=== PATIENT | male | born 1945 | race Caucasian/White ===

== ENCOUNTER 2016-05-21 07:12 | Day surgery (SDC) | payer OTHER ==
[2016-05-16 13:09] VITALS: BMI 18.7
[2016-05-21] MEDS ORDERED: ROCURONIUM BROMIDE 50 MG/5 ML VIAL ONE ×2 (08:22→10:15)
[2016-05-21] MEDS ORDERED: PROPOFOL 20 ML ONE ×3 (08:22→10:15)
[2016-05-21] MEDS ORDERED: MIDAZOLAM HCL 2 MG/2 ML SINGLE DOSE VIAL ONE ×2 (08:22→10:15)
[2016-05-21] MEDS ORDERED: BUPIVACAINE HCL/PF 0.5% (5MG/ML) 10 ML VIAL ONE (08:43)
[2016-05-21] MEDS ORDERED: ceFAZolin SODIUM 1 GM VIAL ONE ×2 (09:15→20:22)
[2016-05-21] MEDS ORDERED: ONDANSETRON 4 MG/2 ML VIAL ONE (09:19)
[2016-05-21] MEDS ORDERED: DEXAMETHASONE SOD PHOSPHATE 4 MG/1 ML VIAL ONE ×3 (09:19→11:27)
[2016-05-21] MEDS ORDERED: SUCCINYLCHOLINE CHLORIDE 200 MG/10 ML VIAL ONE (09:31)
[2016-05-21] MEDS ORDERED: ePHEDrine SULFATE 50 MG/1 ML AMPULE ONE ×2 (09:31→11:34)
[2016-05-21] MEDS ORDERED: GLYCOPYRROLATE 0.2 MG/1 ML VIAL ONE ×3 (10:01→12:26)
[2016-05-21] MEDS ORDERED: NEOSTIGMINE METHYLSULFATE 0.5 MG/ML - 10 ML MDV ONE ×3 (10:01→12:26)
[2016-05-21] MEDS ORDERED: BUPIVACAINE HCL/PF 0.5% (5MG/ML) 10 ML VIAL IJ ONE (10:07)
[2016-05-21] MEDS ORDERED: oxyCODONE HCL 5 MG TABLET PO PRN (10:24)
[2016-05-21] MEDS ORDERED: LACTATED RINGERS SOLUTION 1,000 ML IV SCH (10:30)
[2016-05-21] MEDS ORDERED: TAMSULOSIN HCL 0.4 MG CAP.ER.24H (FP) PO ONE ×2 (10:40→11:00)
[2016-05-21] MEDS ORDERED: CLINDAMYCIN PHOSPHATE 600 MG/4 ML VIAL ONE (11:28)
--- NOTE | 2016-05-21 11:32 | OP ---
DATE OF OPERATION: 05/21/2016 PREOPERATIVE DIAGNOSIS: Incarcerated right inguinal hernia. POSTOPERATIVE DIAGNOSIS: Incarcerated indirect right inguinal hernia. PROCEDURE: Open reduction repair of incarcerated right inguinal hernia with mesh/intermediate wound closure (8 cm). SURGEON: Anthony Byrne M.D. MEDICAL BILLING SUPERVISOR: Kendell Higuera M.D. ANESTHESIA: General ANESTHESIOLOGIST: Lacey Rosen M.D. HISTORY: A 71-year-old man who presents with a mass of the right groin, which based on CT, was felt to likely represent incarcerated fluid within an incarcerated hernia. He presents for definitive management. Indications, alternatives, possible complications reviewed. Consent obtained. PROCEDURE: With the patient in the supine position, after general anesthesia, the right groin was prepped and draped in the usual sterile fashion using chlorhexidine. An 8 cm right groin incision was made between the right pubic tubercle and the anterior iliac spine. The incision was deepened through the skin into the subcutaneous space. The subcutaneous tissues were and divided to the level of the external oblique aponeurosis. All identified vessels in the subcutaneous space were clamped, divided and ligated. The external oblique aponeurosis was then opened in the direction of its fibers through the external ring. The ilioinguinal nerve was identified and spared. The undersurface was split. External oblique aponeurosis swept clean to the level of the pubic tubercle. At the pubic tubercle, a Tatum drain was placed around the cord structures. The cystic mass represented loculated fluid in a distal indirect hernia sac. The sac was freed from its attachments to the remaining cord structures with care not to injure the vas or its vascular component. The sac was mobilized to the level of the preperitoneal fat and the inferior epigastric vessels. It contained no structures. It was transfixed at its base with 2-0 silk material x2. The sac was amputated and sent as specimen. Now directing our attention to the inguinal floor, there was attenuation of the transversalis fascia superiorly. The entire transversalis fascia was split throughout its entire length. The preperitoneal tissues were further reduced and they were placed in the preperitoneal space. It was anchored circumferentially with 2-0 Prolene sutures. The transversalis fascia they were plugged, using a continuous 2-0 Prolene suture, beginning at the pubic tubercle, approaching and reconstructing the internal ring, and returning to the pubic tubercle. Ultimately, an overlay patch was fashioned about the entire inguinal floor and tacked in place circumferentially. The superior portion of the mesh was keyholed and wrapped around the cord buttressing the internal ring. The cord and nerve were returned to their anatomic positions. The overlying external oblique aponeurosis was closed using a 3-0 Vicryl suture. The wound was closed in layers. Apurva fascia was approximated with 3-0 chromic sutures. The subcuticular was approximated with interrupted 4-0 Biosyn sutures. The skin was closed using 4-0 Biosyn interrupted in the subcuticular space in continuous fashion. Ten mL of 0.5% Marcaine was freely instilled in the wound prior to closure. Dermabond applied, procedure terminated. COUNT: Needle and instrument count correct. ESTIMATED BLOOD LOSS: Minimal. SPECIMEN: Hernia sac. DRAINS: None. IMPLANT: Mesh plug. Patient tolerated the procedure. The procedure was terminated. Kaela [id number] cc: Alejandro Rodríguez M.D. MTDMaribel
[2016-05-21] MEDS ORDERED: ONDANSETRON 4 MG/2 ML VIAL IVPUSH PRN (11:33)
[2016-05-21] MEDS ORDERED: PROMETHAZINE HCL 25 MG/1 ML VIAL IVPUSH PRN (11:35)
[2016-05-21] MEDS ORDERED: oxyCODONE HCL 5 MG TABLET ONE (12:08)
[2016-05-21] MEDS ORDERED: LABETALOL HCL 5 MG/1 ML (100MG/20 ML VIAL) ONE (12:21)
[2016-05-21] MEDS ORDERED: TAMSULOSIN HCL 0.4 MG CAP.ER.24H (FP) ONE (16:06)
--- NOTE | 2016-05-21 18:11 | CON.GU ---
Consult Consult Specialty:: Urology Referred by:: Caty Reason for Consultation:: urinary retention - History of Present Illness Chief Complaint: unable to urinate History of Present Illness: 71 yo m w hx BPH on avodart and flomax .8 QD who developed acute urinary retention after open RIH repair today. RN and ER MD were unable to insert chavis and cons requested. - History Source History Provided By: Patient Limitations to Obtaining History: No Limitations - Past Medical History Renal/: Yes: BPH - Past Surgical History Past Surgical History: Yes: Hernia Repair - Alcohol/Substance Use Hx Alcohol Use: Yes (WINE WITH DINNER) - Smoking History Smoking history: Never smoked Have you smoked in the past 12 months: No Aproximately how many cigarettes per day: 0 Home Medications - Allergies Allergies/Adverse Reactions: Allergies Allergy/AdvReac Type Severity Reaction Status Date / Time No Known Drug Allergies Allergy Verified 05/16/16 13:00 - Home Medications Home Medications: Ambulatory Orders Dutasteride [Avodart] 0.5 mg PO HS 10/29/13 Tamsulosin HCl [Flomax] 0.8 mg PO HS 10/29/13 Bupropion HCl [Wellbutrin -] 100 mg PO HS 05/16/16 Bupropion HCl [Wellbutrin -] 200 mg PO DAILY 05/16/16 Cholecalciferol (Vitamin D3) [Vitamin D3] 2,000 unit PO DAILY 05/16/16 Cyanocobalamin [Vitamin B12 -] 1,000 mcg PO DAILY 05/16/16 Escitalopram Oxalate [Lexapro -] 10 mg PO HS 05/16/16 Oxycodone HCl/Acetaminophen [Percocet 5-325 mg Tablet] 1 tab PO Q4H PRN #42 tablet MDD 6 05/21/16 Physical Exam- Vital Signs: Vital Signs Temperature 98.6 F 05/21/16 13:40 Pulse Rate 62 05/21/16 13:40 Respiratory Rate 18 05/21/16 13:40 Blood Pressure 112/59 05/21/16 13:40 O2 Sat by Pulse Oximetry (%) 99 05/21/16 13:40 Constitutional: Yes: Well Nourished, No Distress, Calm Renal/: Yes: Bladder Distention, Urethral Discharge (bloody). No: Hematuria Prostate Exam: Yes: Swollen (4+) Labs: CBC, BMP 05/21/16 07:40 Assessment/Plan Imp: BPH, urinary retention, ? urethral false passage, s/p RIH repair Rec: I was unable to insert, 14, 16, 18, or 20 fr coude catheter due to resistance at Bladder neck/prostatic urethra. He needs cystoscopy and chavis cath insertion over a wire.
[2016-05-21] MEDS ORDERED: morphine CARPU-JECT 2 MG/1 ML DISP.SYRIN IVPB ONE (19:07)
[2016-05-21] MEDS ORDERED: morphine CARPU-JECT 2 MG/1 ML DISP.SYRIN ONE (19:33)
[2016-05-21] MEDS ORDERED: LIDOCAINE 1%/EPI 1:100000 (50 ML MULTI DOSE VIAL) INF ONE (19:45)
[2016-05-21] MEDS ORDERED: LIDOCAINE HCL 2% JELLY 10 ML CARTRIDGE ONE (19:49)
[2016-05-21] MEDS ORDERED: LIDOCAINE 1%-EPI 1:100,000 30 ML MDV IJ ONE (19:53)
[2016-05-21] MEDS ORDERED: morphine CARPU-JECT 2 MG/1 ML DISP.SYRIN IVPUSH STA (20:03)
--- NOTE | 2016-05-21 20:32 | OP ---
Operative Note - Note: Operative Date: 05/21/16 Pre-Operative Diagnosis: acute urinary retention, BPH Operation: percutaneous suprapubic cystostomy Findings: > 1 liter clear yellow urine drained Post-Operative Diagnosis: Same as Pre-op Surgeon: Brian Buchanan Anesthesia: Local Estimated Blood Loss (mls): 0 Drains & Tubes with Location: 12 fr 10 ml balloon SP tube Operative Report Dictated: Yes
[2016-05-21] MEDS ORDERED: DEXTROSE 5%-0.45% SALINE 1,000 ML IV SCH ×2 (20:45)
[2016-05-22] MEDS: CEFAZOLIN (PRE-DOCKED) 50 ML IVPB SCH ×2 (01:15→09:10)
[2016-05-22] MEDS: OXYCODONE/APAP 5/325MG COMBO TABLET PO PRN ×2 (01:15→09:13)
[2016-05-22 05:28] VITALS: BP 93/39; PULSE 58; TEMP 97.8
[2016-05-22] MEDS ORDERED: AMOX TR/POT CLAV 875MG/125MG TABLETS (FP) PO SCH (08:00)
--- NOTE | 2016-05-22 16:36 | OP ---
OPERATIVE REPORT DATE OF OPERATION: 05/21/2016 PROCEDURE: Percutaneous trocar suprapubic cystotomy. PREOPERATIVE DIAGNOSIS: Acute urinary retention and BPH. POSTOPERATIVE DIAGNOSIS: Acute urinary retention and BPH. SURGEON: Brian Matthews MD TITLE ASSISTANT: None. ANESTHESIA: Local. SPECIMENS: None. CULTURES: None. DRAINS: A 12-Sinhala, 10-mL balloon; suprapubic tube. ESTIMATED BLOOD LOSS: None. COMPLICATION: None. PROCEDURE WENT FOLLOWS: Patient brought into the recovery room and left on a stretcher in the supine position. After administration of some intravenous analgesia, the lower abdomen was prepped and draped in the usual sterile manner. Then, 10 mL of 1% lidocaine with epinephrine were injected into the anterior abdominal wall 2 fingerbreadths cephalad to the symphysis pubis in the midline. Local anesthesia was then infiltrated in a deeper manner and using a 22-gauge needle, the bladder was entered and urine was aspirated. Then, an 11-blade was used to make a small stab wound in the skin at this level. The 22-gauge needle was removed and the trocar 12-Sinhala suprapubic cystotomy was inserted. Trocar was removed. Urine was evacuated and 10 mL were placed in the balloon, placed on gravity drainage and returned greater than 1 liter of clear yellow urine. Tolerated the procedure well. Sterile compressive dressing was applied. He will be discharged home on antibiotics with followup in the office in the morning for cystoscopy. He will most likely need a prostatectomy. BRIAN MATTHEWS M.D. [id number]
--- NOTE | 2016-05-23 11:34 | PATH ---
Surgical Pathology Report Patient Name: YOANDY INIGUEZ Med. Rec. #: [id number] /Age/Gender: 1945 (Age: 71) / M Account: [id number] Location: [facility] Taken: 05/21/2016 Received: 05/21/2016 Reported: 05/23/2016 Physicians: Anthony Byrne M.D. Specimen(s) Received HERNIA SAC Clinical History Incarcerated right inguinal hernia Final Diagnosis SOFT TISSUE, RIGHT INGUINAL, EXCISION: HERNIA SAC WITH ASSOCIATED CHRONIC INFLAMMATION. Electronically Signed Douglas Ramirez M.D. Gross Description Received in formalin, labeled "hernia sac," is a 7.5 x 1.3 x 0.3 cm waters-brown, irregular portion of soft tissue, consistent with a hernia sac. Farm Operations Manager sections are submitted in one cassette. 05/22/201605/22/2016
== END 2016-05-22 11:05 | disposition home or self-care (01) ==
LOC: FASU 07:12 → FM/S 21:00 → FASU 05-22 11:05
PROVIDERS: ATTEND Surgery
PROC: 0T9B30Z Drainage of Bladder with Drainage Device, Percutaneous Approach (ICD-10-PCS; 2016-05-21)
PROC: 0YU50JZ Supplement Right Inguinal Region with Synthetic Substitute, Open Approach (ICD-10-PCS; principal; 2016-05-21 09:20)
DX: K40.30 Unilateral inguinal hernia, with obstruction, without gangrene, not specified as recurrent (principal); N40.1 Benign prostatic hyperplasia with lower urinary tract symptoms; R33.9 Retention of urine, unspecified
CPT/HCPCS: 36415; 84132; 87086; 87186; 88302-TC; 94760

== ENCOUNTER 2017-05-31 10:13 | Emergency (ER) | payer OTHER ==
--- NOTE | 2017-05-31 10:23 | PDOC ---
History of Present Illness - General Chief Complaint: Abscess Boil Stated Complaint: blister to right great toe Time Seen by Provider: 05/31/17 10:16 - History of Present Illness Initial Comments: 05/31/17 10:25 72-year-old male with a history of BPH, depression presents to the emergency department with a blood blister on his right great toe. Patient reports 2 days ago a approximately 100 pound metal crate slipped onto his right toe. He had shoes on at the time. He denies any pain but notes that since the injury he developed a blood blister over the right great toe. Denies any other injuries. States he do not mind search on how to resolve the blister and came to the emergency department so that we could unroof it. Denies any fevers, chills, chest pain, shortness of breath, abdominal pain, weakness/numbness. Past History - Past Medical History Allergies/Adverse Reactions: Allergies Allergy/AdvReac Type Severity Reaction Status Date / Time No Known Drug Allergies Allergy Verified 05/31/17 10:24 Home Medications: Ambulatory Orders Dutasteride [Avodart] 0.5 mg PO HS 10/29/13 Tamsulosin HCl [Flomax] 0.8 mg PO HS 10/29/13 Bupropion HCl [Wellbutrin -] 200 mg PO BID 05/16/16 Cholecalciferol (Vitamin D3) [Vitamin D3] 2,000 unit PO DAILY 05/16/16 Cyanocobalamin [Vitamin B12 -] 1,000 mcg PO DAILY 05/16/16 Escitalopram Oxalate [Lexapro -] 10 mg PO HS 05/16/16 Anemia: No Asthma: No Cancer: No Cardiac Disorders: No CVA: No COPD: No CHF: No Dementia: No Diabetes: No GI Disorders: No Disorders: Yes (BPH) HTN: No Hypercholesterolemia: No Liver Disease: No Seizures: No Thyroid Disease: No - Suicide/Smoking/Psychosocial Hx Smoking Status: No Smoking History: Never smoked Have you smoked in the past 12 months: No Number of Cigarettes Smoked Daily: 0 Hx Alcohol Use: Yes (WINE WITH DINNER) Drug/Substance Use Hx: Yes Substance Use Type: Alcohol Hx Substance Use Treatment: No Review of Systems - Review of Systems Comments:: 05/31/17 10:27 GENERAL/CONSTITUTIONAL: No fever or chills. No weakness. HEAD, EYES, EARS, NOSE AND THROAT: No change in vision. No ear pain or discharge. No sore throat. GASTROINTESTINAL: No nausea, vomiting, diarrhea or constipation. GENITOURINARY: No dysuria, frequency, or change in urination. CARDIOVASCULAR: No chest pain or shortness of breath. RESPIRATORY: No cough, wheezing, or hemoptysis. MUSCULOSKELETAL: No joint or muscle swelling or pain. No neck or back pain. SKIN: +blister to R great toe NEUROLOGIC: No headache, vertigo, loss of consciousness, or change in strength/ sensation. ENDOCRINE: No increased thirst. No abnormal weight change. HEMATOLOGIC/LYMPHATIC: No anemia, easy bleeding, or history of blood clots. ALLERGIC/IMMUNOLOGIC: No hives or skin allergy. *Physical Exam - Physical Exam Comments: 05/31/17 10:27 GENERAL: Awake, alert, and fully oriented, in no acute distress HEAD: No signs of trauma EYES: PERRLA, EOMI, sclera anicteric, conjunctiva clear ENT: Auricles normal inspection, hearing grossly normal, nares patent, oropharynx clear without exudates. Moist mucosa NECK: Normal ROM, supple, no lymphadenopathy, JVD, or masses LUNGS: Breath sounds equal, clear to auscultation bilaterally. No wheezes, and no crackles HEART: Regular rate and rhythm, normal S1 and S2, no murmurs, rubs or gallops ABDOMEN: Soft, nontender, normoactive bowel sounds. No guarding, no rebound. No masses EXTREMITIES: Normal range of motion, no edema. No clubbing or cyanosis. No cords, erythema, or tenderness. Dorsal R great toe with 2x1cm blood blister. Plantar surface of toe with ecchymosis. No deformities. 2+ peripheral pulses NEUROLOGICAL: Normal speech, cranial nerves intact, negative pronator drift, 5/ 5 strength in all 4 extremities, normal sensation to light touch in all 4 extremities, normal cerebellar exam, normal gait, normal reflexes and tone SKIN: Warm, Dry, normal turgor, no rashes or lesions noted. Medical Decision Making - Medical Decision Making 05/31/17 10:29 72yo M p/w blood blister after crate fell onto his R great toe. Pt had shoes on , no open injuries. Toe with ecchymosis, thus will obtain XR to r/o bony injury.Pt is NV intact. Discussed with pt that blood blister would likely resolve on it's own and that unroofing it would expose it to infection. Has no pain, declines pain medications. 05/31/17 11:37 R great toe with non displaced fracture. Pt has no pain. Due to blood blister on toe, will be unable to jessica tape the toe. Pt given hard soled shoe and will follow up with ortho. I discussed the physical exam findings, ancillary test results and final diagnoses with the patient. I answered all of the patient's questions. The patient was satisfied with the care received and felt comfortable with the discharge plan and treatment plan. The patient will call their primary care physician within 24 hours to arrange follow-up and will return to the Emergency Department with any new, persistent or worsening symptoms. *DC/Admit/Observation/Transfer Diagnosis at time of Disposition: Fracture, toe - Discharge Dispostion Disposition: HOME Condition at time of disposition: Stable Admit: No - Referrals Referrals: Alfred Sands MD [Staff Physician] - - Patient Instructions Printed Discharge Instructions: DI for Toe Fracture Additional Instructions: Make a follow-up appointment with Dr. Sands (orthopedics) within one week. If you develop pain, you may take Tylenol or Motrin for pain control. Return to the emergency department if you have any new, worsening or concerning symptoms. - Post Discharge Activity - Attestations Physician Attestion: 05/31/17 11:44 I, Dr. Tonie Sebastian MD, attest that this document has been prepared under my direction and personally reviewed by me in its entirety. I further attest, that it accurately reflects all work, treatment, procedures and medical decision -making performed by me.
[2017-05-31 10:31] VITALS: BP 138/79; PULSE 60; TEMP 97.9
== END 2017-05-31 11:52 | disposition home or self-care (01) ==
LOC: FER 10:13
DX: S92.424A Nondisplaced fracture of distal phalanx of right great toe, initial encounter for closed fracture (principal); W20.8XXA Other cause of strike by thrown, projected or falling object, initial encounter; Y93.89 Activity, other specified; Y92.9 Unspecified place or not applicable
CPT/HCPCS: 73660-TC-FY; 99281-25

== ENCOUNTER 2018-09-06 08:06 | Day surgery (SDC) | payer OTHER ==
[2018-09-06 08:36] VITALS: TEMP 98
[2018-09-06] MEDS ORDERED: PROPOFOL 20 ML ONE ×2 (08:46)
[2018-09-06 10:51] VITALS: BP 108/61; PULSE 60
--- NOTE | 2018-09-09 11:20 | PATH ---
Surgical Pathology Report Patient Name: YOANDY INIGUEZ [facility]. Rec. #: [id number] /Age/Gender: 1945 (Age: 73) / M Account: [id number] Location: [facility] Taken: 09/06/2018 Received: 09/06/2018 Reported: 09/09/2018 Physicians: Bonilla Hayward M.D. Specimen(s) Received ILEOCECAL VALVE Clinical History Family history polyps Postoperative diagnosis: Polyp Final Diagnosis ILEOCECAL VALVE, POLYP, BIOPSY: TUBULAR ADENOMA. Electronically Signed Charmaine Berg M.D. Gross Description Received in formalin, labeled " bx polyp ileocecal valve" is a waters, irregular portion of soft tissue measuring 0.2 cm. in greatest dimension. The specimen is submitted in toto in one cassette. MLSZ/09/07/2018 sansadi/09/07/2018
== END 2018-09-06 11:00 | disposition home or self-care (01) ==
LOC: FASU-ENDO 08:06
PROVIDERS: ATTEND Internal Medicine Gastroenterology
PROC: 0DBC8ZX Excision of Ileocecal Valve, Via Natural or Artificial Opening Endoscopic, Diagnostic (ICD-10-PCS; principal; 2018-09-06 09:41)
DX: Z12.11 Encounter for screening for malignant neoplasm of colon (principal); Z83.71 Family history of colonic polyps; D12.0 Benign neoplasm of cecum
CPT/HCPCS: 88305-TC

== ENCOUNTER 2020-01-22 10:20 | Emergency (ER) | payer OTHER ==
--- OUTSIDE RECORDS SUMMARY | 2020-01-22 10:27 | XMS ---
:1945 Author Organization [facility] Support Name Relationship Address Phone CYPRIOT HOUSEWARES Unavailable [address] [place] [address] SHRUTHI INIGUEZ DAUGHTER [address] [phone] [place] [address] GILBERTO INIGUEZ [address] [place] [address] GILBERTO INIGUEZ Spouse [address] [place] [place] [address] Re-disclosure Warning The records that you are about to access may contain information from federally- assisted alcohol or drug abuse programs. If such information is present, then the following federally mandated warning applies: This information has been disclosed to you from records protected by federal confidentiality rules (42 CFR part 2). The federal rules prohibit you from making any further disclosure of this information unless further disclosure is expressly permitted by the written consent of the person to whom it pertains or as otherwise permitted by 42 CFR part 2. A general authorization for the release of medical or other information is NOT sufficient for this purpose. The Federal rules restrict any use of the information to criminally investigate or prosecute any alcohol or drug abuse patient.The records that you are about to access may contain highly sensitive health information, the redisclosure of which is protected by Article 27-F of the [facility] Public Health law. If you continue you may haveaccess to information: Regarding HIV / AIDS; Provided by facilities licensed or operated by the [facility] Office of Mental Health; or Provided by the [facility] Office for People With Developmental Disabilities. If such information is present, then the following [facility] mandated warning applies: This information has been disclosed to you from confidential records which are protected by state law. State law prohibits you from making any further disclosure of this information without the specific written consent of the person to whom it pertains, or as otherwise permitted by law. Any unauthorized further disclosure in violation of state law may result in a fine or halfway sentence or both. A general authorization for the release of medical or other information is NOT sufficient authorization for further disclosure. Encounters Encounter Providers Location Date Indications Data Source(s ) Outpatient 11/04/2019 09:22:00 [facility] ([facility]) Outpatient 11/04/2019 09:22:00 [facility] ([facility]) Insurance Providers Payer name Policy type Policy ID Covered Covered democrat's Policy P [id number] / Coverage democrat ID relationship to Brady Inf ormation type brady AETNA M 18 M RUPINDER MEDICARE [id number] SP [id number] AETNA [id number] SP [id number] MEDICARE
--- NOTE | 2020-01-22 11:00 | TELE ---
HPI Do you have fever,cough or shortness of breath?: No - General Reason For Visit: COVID TESTING History Source: Patient Past History - Medical History Allergies/Adverse Reactions: Allergies Allergy/AdvReac Type Severity Reaction Status Date / Time No Known Drug Allergies Allergy Verified 07/12/19 19:21 Home Medications: Ambulatory Orders Dutasteride [Avodart] 0.5 mg PO HS 10/29/13 Bupropion HCl [Wellbutrin -] 200 mg PO BID 05/16/16 Cholecalciferol (Vitamin D3) [Vitamin D3] 2,000 unit PO HS 05/16/16 Cyanocobalamin [Vitamin B12 -] 1,000 mcg PO HS 05/16/16 Escitalopram Oxalate [Lexapro -] 10 mg PO HS 05/16/16 Anemia: No Asthma: No Cancer: No Cardiac Disorders: No CVA: No COPD: No CHF: No Dementia: No Diabetes: No GI Disorders: No Disorders: Yes (BPH) HTN: No Hypercholesterolemia: No Liver Disease: No Psychiatric Problems: Yes Seizures: No Thyroid Disease: No - Surgical History Abdominal Surgery: Yes (hernia repair in 2017) Appendectomy: No Cardiac Surgery: No Cholecystectomy: No Lung Surgery: No Neurologic Surgery: No Orthopedic Surgery: No - Psycho-Social/Smoking History Smoking Status: No Smoking History: Never smoked Have you smoked in the past 12 months: No Number of Cigarettes Smoked Daily: 0 Review of Systems - Review of Systems Constitutional: No: Chills, Fever HEENTM: Yes: Throat Pain Respiratory: No: Cough, Shortness of Breath Cardiac (ROS): No: Chest Pain *Physical Exam - Physical Exam HEENT: positive: Normal Voice - Medical Decision Making 01/22/20 10:57 74 yo M, no sig hx Called for covid testing Reports sore throat since last night No cough, loss of taste/smell, sob, CP, f/c Of note, pt unable to utilize Backline Discharge Diagnosis at time of Disposition: Encounter by telehealth for suspected COVID-19 - Referrals Follow-up Referral(s): Alejandro Rodríguez MD [Primary Care Provider] - - Patient Instructions - Discharge Disposition: HOME
== END 2020-01-22 11:00 | disposition home or self-care (01) ==
LOC: JVIRT 10:20
DX: Z11.59 Encounter for screening for other viral diseases (principal)
CPT/HCPCS: Q3014-GT; U0003

== ENCOUNTER 2021-05-18 17:57 | Emergency (ER) | payer OTHER ==
[2021-05-18 18:10] VITALS: BP 179/75; PULSE 52; TEMP 97.5; BMI 19.3
== END 2021-05-18 19:07 | disposition home or self-care (01) ==
LOC: FER 17:57
DX: T33.90XA Superficial frostbite of unspecified sites, initial encounter (principal)
CPT/HCPCS: 99283-25

== ENCOUNTER 2021-10-28 08:12 | Day surgery (SDC) | payer OTHER ==
[2021-10-23 12:20] VITALS: BMI 17.7
[2021-10-28] MEDS ORDERED: LIDOCAINE HCL/PF 2% SDV 5ML VIAL ONE (08:18)
[2021-10-28] MEDS ORDERED: PROPOFOL 20 ML ONE ×4 (08:18)
[2021-10-28 09:16] VITALS: TEMP 96.9
[2021-10-28 09:35] VITALS: BP 115/58; PULSE 82
== END 2021-10-28 10:22 | disposition home or self-care (01) ==
LOC: FASU-ENDO 08:12
PROVIDERS: ATTEND Internal Medicine Gastroenterology
PROC: 0DBA8ZX Excision of Jejunum, Via Natural or Artificial Opening Endoscopic, Diagnostic (ICD-10-PCS; 2021-10-28)
PROC: 0DB98ZX Excision of Duodenum, Via Natural or Artificial Opening Endoscopic, Diagnostic (ICD-10-PCS; principal; 2021-10-28 08:54)
DX: R10.11 Right upper quadrant pain (principal); K29.50 Unspecified chronic gastritis without bleeding
CPT/HCPCS: 88305-TC; 88342-TC